=== PATIENT | female | born 1955 | race African-American/Black ===

== ENCOUNTER 2017-06-07 09:13 | Emergency (ER) | payer OTHER ==
[~2017-06-07] VITALS: Ht 175.3 cm; Wt 102.1 kg
== END 2017-06-07 10:37 | disposition home or self-care (01) ==
LOC: FSED 09:13
DX: M79.642 Pain in left hand (principal); M85.822 Other specified disorders of bone density and structure, left upper arm; I10 Essential (primary) hypertension; E78.5 Hyperlipidemia, unspecified; M19.90 Unspecified osteoarthritis, unspecified site; L30.9 Dermatitis, unspecified
CPT/HCPCS: 99283